=== PATIENT | male | born 1990 | race Caucasian/White ===

== ENCOUNTER 2021-04-04 18:32 | Emergency (ER) | payer BC ==
[~2021-04-04] VITALS: Ht 175.3 cm; Wt 72.7 kg
[2021-04-04] MEDS ORDERED: CILOXAN .3% EY2.5 ML OS ×2 (19:28→19:29)
[2021-04-04 19:34] VITALS: BP 128/74; PULSE 89; TEMP 98.3
== END 2021-04-04 19:34 | disposition home or self-care (01) ==
LOC: COL.ER 18:32
DX: S05.02XA Injury of conjunctiva and corneal abrasion without foreign body, left eye, initial encounter (principal); Z87.891 Personal history of nicotine dependence; W31.89XA Contact with other specified machinery, initial encounter; Y99.0 Civilian activity done for income or pay

== ENCOUNTER 2022-07-05 09:21 | Emergency (ER) | payer BC ==
[~2022-07-05] VITALS: Ht 175.3 cm; Wt 72.7 kg
[~2022-07-05 09:21] MED LIST: CILOXAN .3% EY2.5 ML OS
[2022-07-05 09:40] VITALS: TEMP 97.8
[2022-07-05 10:43] LABS: COLLECTION METHOD CLEAN CATCH
[2022-07-05 10:48] LABS: BASO % 0.6 % (0.0-2.0); EOS # 0.1 K/mm3 (0.0-0.7); EOS % 1.2 % (0.0-4.0); GRAN # 4.4 K/mm3 (1.4-6.5); GRAN % 68.2 % (42.2-75.2); HEMATOCRIT 43.2 % (42.0-52.0); HEMOGLOBIN 14.6 g/dl (13.5-18.0); LYMPH # 1.6 K/mm3 (1.2-3.4); MEAN CELL VOLUME 81 fl (80.0-100.0); MEAN CORPUSCULAR HEMOGLOBIN 27 pg (27-31); MEAN CORPUSCULAR HGB CONC 34 g/dl (33.0-37.0); MEAN PLATELET VOLUME 8.1 fl (7.4-10.4); MONO # 0.4 K/mm3 (0.1-0.6); PLATELET COUNT 259 K/mm3 (130-400); RED BLOOD COUNT 5.33 M/mm3 (4.20-5.60); REDCELL DISTRIBUTION WIDTH-CV 12.8 % (11.5-14.5)
[2022-07-05 11:02] LABS: URINE APPEARANCE Clear (CLEAR/HAZY); URINE BLOOD Negative (NEGATIVE); URINE COLOR Yellow (YELLOW); URINE GLUCOSE Negative (NEGATIVE); URINE KETONE Negative (NEGATIVE); URINE NITRATE Negative (NEGATIVE); URINE PROTEIN(semi-quant) Negative (NEGATIVE); URINE UROBILINOGEN 0.2 E.U/dL (0.2-1.0)
[2022-07-05 11:03] LABS: SQUAMOUS EPITHELIAL None Seen /hpf (0-10); URINE BACTERIA None Seen /hpf (NONE SEEN); URINE RBC 0-2 /hpf (0-2)
[2022-07-05 11:08] LABS: ALBUMIN 4.5 gm/dL (3.5-5.0); BILIRUBIN,TOTAL 1.2 mg/dL (0.2-1.2); C-REACTIVE PROTEIN 0.03 mg/dL (0.00-0.50); CALCIUM 9.6 mg/dL (8.4-10.2); CREATININE, serum 0.92 mg/dL (0.72-1.25); POTASSIUM 3.8 mmol/L (3.5-4.5); TOTAL PROTEIN 7.8 gm/dL (6.2-8.1)
[2022-07-05 11:37] VITALS: BP 130/80; PULSE 70
== END 2022-07-05 11:39 | disposition home or self-care (01) ==
LOC: COL.ER 09:21
PROVIDERS: Emergency Medicine
DX: R10.31 Right lower quadrant pain (principal); R10.32 Left lower quadrant pain
CPT/HCPCS: J7030